=== PATIENT | male | born 1980 | race Two or more races ===

== ENCOUNTER 2017-05-02 14:38 | Emergency (ER) | payer OTHER ==
[~2017-05-02] VITALS: Ht 175.3 cm; Wt 95.9 kg
[2017-05-02 14:43] VITALS: BP 123/84
== END 2017-05-02 15:57 | disposition home or self-care (01) ==
LOC: ED 15:30
DX: S63.650A Sprain of metacarpophalangeal joint of right index finger, initial encounter (principal); X58.XXXA Exposure to other specified factors, initial encounter; Y93.E9 Activity, other interior property and clothing maintenance; Y92.89 Other specified places as the place of occurrence of the external cause; Y99.9 Unspecified external cause status
CPT/HCPCS: 99284

== ENCOUNTER 2019-03-02 15:25 | Emergency (ER) | payer SELFPAY ==
[~2019-03-02] VITALS: Ht 167.6 cm; Wt 94.2 kg
[2019-03-02 15:29] VITALS: BP 102/62
== END 2019-03-02 16:54 | disposition home or self-care (01) ==
LOC: ED 16:39
DX: T15.02XA Foreign body in cornea, left eye, initial encounter (principal); X58.XXXA Exposure to other specified factors, initial encounter; Y93.89 Activity, other specified; Y92.89 Other specified places as the place of occurrence of the external cause; Y99.8 Other external cause status
CPT/HCPCS: 65222; 99284